=== PATIENT | male | born 1940 | race Caucasian/White ===

== ENCOUNTER → 2020-10-30 | Outpatient (CLI) | payer MEDICARE ==
[~2020-10-30] MED LIST: ASP81CT GT; BETA1TAB15 PO; DILT240C90 PO; FINA5TAB PO; IRB150T; LEVO175T2 PO; LEVO200T30; LVT.15T PO; METO50TA7 PO; OMEP20TA2 PO; RIVA10TA PO; RIVA20TA2 PO; TRIAMCINOLONE CREAM
--- NOTE | 2020-10-30 17:09 | Diagnostic Imaging Report ---
PROCEDURE: MR imaging cervical spine without contrast. TECHNIQUE: Multiplanar, multisequence MR imaging of the cervical spine was performed without contrast. INDICATION: Bilateral arm pain. Patient has prior history of cervical spine surgery. FINDINGS: Curvature of the cervical spine is normal. There is retrolisthesis of C3 on C4. There appears to be osseous fusion between the C6 and C7 vertebral bodies. Severe multilevel degenerative disc disease is seen. There is disc space narrowing and desiccation at all levels of the cervical spine as well as the upper thoracic spine. Cervical cord does show normal homogeneous signal intensity and normal morphology. Craniocervical junction is unremarkable. C2-C3: Central canal and neuroforamina appear to be patent. C3-C4: Broad-based disc/osteophyte complex indents the ventral thecal sac. There is moderate central canal stenosis. There is also significant bilateral neuroforaminal stenosis. C4-C5: Central canal is patent. There is moderate right and mild left neuroforaminal stenosis. C5-C6: Central canal is patent. There is mild left neuroforaminal narrowing. Right neuroforamen is patent. C6-C7: Central canal is patent. Neuroforamina are patent. C7-T1: Central canal is patent. There is moderate neuroforaminal narrowing bilaterally. Paraspinous tissues are unremarkable. IMPRESSION: Multilevel cervical spondylosis with multilevel central canal and neuroforaminal stenosis, described level by level above. Dictated by: Dictated on workstation # [id number]
== END ==
LOC: RAD 14:00
PROVIDERS: ATTEND Nurse Practitioner Family
DX: M47.812 Spondylosis without myelopathy or radiculopathy, cervical region (principal); M48.02 Spinal stenosis, cervical region; M25.78 Osteophyte, vertebrae
CPT/HCPCS: 72141

== ENCOUNTER 2021-01-10 11:15 | Outpatient (RCR) | payer MEDICARE | END 2021-01-30 14:00 | disposition home or self-care (01) | PROVIDERS: ATTEND Nurse Practitioner Family | DX: M54.12 Radiculopathy, cervical region (principal) ==

== ENCOUNTER 2023-01-29 07:49 | Emergency (ER) | payer MEDICARE ==
[~2023-01-29] VITALS: Ht 190 cm; Wt 122.0 kg
[2023-01-29 08:12] LABS: BASOPHILS % (AUTO) 0 % (0-10); EOSINOPHILS % (AUTO) 0 % (0-10); HEMATOCRIT 45 % (40-54); HEMOGLOBIN 14.5 g/dL (13.3-17.7); LYMPHOCYTES # (AUTO) 1.4 10^3/uL (1.0-4.0); LYMPHOCYTES % (AUTO) 13 % (12-44); MEAN CORPUSCULAR HEMOGLOBIN 28 pg (25-34); MEAN CORPUSCULAR HGB CONC 32 g/dL (32-36); MEAN CORPUSCULAR VOLUME 87 fL (80-99); MONOCYTES # (AUTO) 0.5 10^3/uL (0.0-1.0); MONOCYTES % (AUTO) 5 % (0-12); NEUTROPHILS # (AUTO) 8.6 10^3/uL (1.8-7.8); NEUTROPHILS % (AUTO) 81 % (42-75); PLATELET COUNT 165 10^3/uL (130-400); WHITE BLOOD COUNT 10.5 10^3/uL (4.3-11.0)
[2023-01-29 08:17] LABS: ALBUMIN 4.4 GM/DL (3.2-4.5); POTASSIUM 4.1 MMOL/L (3.6-5.0)
[2023-01-29 08:18] LABS: CALCIUM 9.1 MG/DL (8.5-10.1)
[2023-01-29 08:21] LABS: BILIRUBIN,TOTAL 0.7 MG/DL (0.1-1.0)
[2023-01-29 08:23] LABS: CREATININE SERUM 1.28 MG/DL (0.60-1.30)
[2023-01-29 08:31] LABS: CLARITY,URINE CLEAR; COLOR,URINE YELLOW; GLUCOSE, URINE (UA) NEGATIVE (NEGATIVE); KETONES,URINE TRACE (NEGATIVE); NITRITE,URINE NEGATIVE (NEGATIVE); PROTEIN,URINE 3+ (NEGATIVE)
[2023-01-29 08:32] LABS: AMORPHOUS SEDIMENT,UR FEW AMOR URATES /LPF; BACTERIA,URINE NEGATIVE /HPF; BILIRUBIN,URINE 1+ (NEGATIVE); LEUKOCYTE ESTERASE ,URINE NEGATIVE (NEGATIVE); RBC,URINE 0-2 /HPF; WBC,URINE 0-2 /HPF
--- NOTE | 2023-01-29 08:40 | ED Abdominal Pain ---
General Chief Complaint: Abdominal/GI Problems Stated Complaint: ABD PAIN | RIB CAGE PAIN Nursing Triage Note: PT STATES PAIN UNDER HIS UPPER MID RIBCAGE, HX OF GALLBLADDER ISSUES, NAUSEA, SHAKEY, 1 TRAMADOL AT 00:00 AND 1 AT 0600 Source of Information: Patient, Old Records Exam Limitations: No Limitations History of Present Illness Date Seen by Provider: Jan 29, 2023 Time Seen by Provider: 07:53 Initial Comments This 83-year-old gentleman presents to the emergency room with complaints of right upper quadrant abdominal pain that started about midnight. He ate a large Thanksgiving meal last night. He has associated nausea without vomiting. He denies constipation or diarrhea. He has not been passing gas or had any bowel movements today. Pain is constant. He took Ultram at midnight and again at 0600 without much improvement. He was treated here several years ago for abdominal pain and was thought to have cholecystitis at that time although imaging studies were negative. Follow-up hepatobiliary scan was recommended, but he did not pursue HIDA scan at that time. He denies any urinary changes. He rates his pain as 4/10. Chart from his prior visits was reviewed including imaging studies. He is afebrile. He is anticoagulated on Eliquis for stroke prophylaxis and atrial fibrillation. He admits to having 1 small drink of hard liquor daily. Allergies and Home Medications Allergies Coded Allergies: Penicillins (Verified Allergy, Mild, HIVES, 02/16/07) procaine (Verified Allergy, Mild, PASS OUT, 02/16/07) Uncoded Allergies: flu vaccine (Allergy, Unknown, 01/15/14) Patient Home Medication List Home Medication List Reviewed: Yes Cefdinir (Cefdinir) 300 Mg Capsule, 300 MG PO BID Prescribed by: ADRIANA RODRÍGUEZ on 01/29/23 1205 Diltiazem HCl (Diltiazem 24Hr Cd) 240 Mg Cap.er.24h, 240 MG PO HS, (Reported) Entered as Reported by: CINDY CAMPBELL on 06/23/15 0355 Finasteride (Finasteride) 5 Mg Tablet, 5 MG PO HS, (Reported) Entered as Reported by: VISHAL MAYO on 12/07/12 0826 Levothyroxine Sodium (Synthroid) 175 Mcg Tablet, 175 MCG PO DAILY, (Reported) Entered as Reported by: CINDY CAMPBELL on 06/23/15354 Metronidazole (Metronidazole) 500 Mg Tablet, 500 MG PO QID Prescribed by: ADRIANA RODRÍGUEZ on 01/29/23 120 Ondansetron (Ondansetron Odt) 4 Mg Tab.rapdis, 4 MG SL Q4H PRN for NAUSEA/VOMITING Prescribed by: ADRIANA RODRÍGUEZ on 01/29/23 1205 Oxycodone HCl/Acetaminophen (Percocet 5-325 mg Tablet) 1 Each Tablet, 1-2 TAB PO Q4H PRN for PAIN-BREAKTHROUGH Prescribed by: ADRIANA RODRÍGUEZ on 01/29/23 1206 Rivaroxaban (Xarelto Tablet) 20 Mg Tablet, 20 MG PO HS, (Reported) Entered as Reported by: CINDY CAMPBELL on 06/23/15354 Vit A/Vit C/Vit E/Zinc/Copper (Preservision Areds Tablet) 1 Each Tablet, 2 TAB PO HS, (Reported) Entered as Reported by: CINDY CAMPBELL on 06/23/15354 Review of Systems Review of Systems Constitutional: no symptoms reported EENTM: No Symptoms Reported Respiratory: No Symptoms Reported Cardiovascular: No Symptoms Reported Gastrointestinal: See HPI Genitourinary: No Symptoms Reported Musculoskeletal: no symptoms reported Skin: no symptoms reported Psychiatric/Neurological: No Symptoms Reported Endocrine: No Symptoms Reported Hematologic/Lymphatic: No Symptoms Reported Past Mjjnoiw-Dqymda-Diyole Hx Patient Social History Tobacco Use?: No Substance use?: No Alcohol Use?: Yes Past Medical History Surgery/Hospitalization HX: TUMOR IN [facility], A FIB Surgeries: Yes Bladder Surgery (Malignant tumor resected), Orthopedic Respiratory: No Cardiac: Yes Atrial Fibrillation, Hypertension Neurological: No Reproductive Disorders: No Sexually Transmitted Disease: No Genitourinary: Yes Prostate Problems Gastrointestinal: Yes Diverticulosis, Gall Bladder Disease Musculoskeletal: Yes Chronic Back Pain Hypothyroidsim HEENT: No Cancer: Yes Bladder Did You Recieve Any Treatments: Yes What Type of Treatment Did You: Surgical Intervention Psychosocial: No Integumentary: No Family Medical History Arthritis 19 FATHER 19 MOTHER FH: coronary artery bypass surgery 19 FATHER FH: kidney cancer 19 MOTHER FH: leukemia G8 SISTER Kidney disease 19 MOTHER Thyroid disease 19 MOTHER No Pertinent Family Hx Physical Exam Vital Signs Vital Signs - First Documented 01/29/23 01/29/23 07:54 13:00 Temp 36.4 Pulse 111 Resp 20 B/P (MAP) 172/107 (128) Pulse Ox 99 O2 Delivery Room Air Capillary Refill : Less Than 3 Seconds Height/Weight/BMI Height: 6'3.00" Weight: 269lbs. 8.0oz. 122.743944ea; 33.00 BMI Method:Stated General Appearance: WD/WN, no apparent distress HEENT: normal ENT inspection Neck: normal inspection Respiratory: lungs clear, normal breath sounds, no respiratory distress, no accessory muscle use Cardiovascular: no edema, no murmur, irregularly irregular Gastrointestinal: normal bowel sounds, soft, tenderness (Epigastrium and right upper quadrant), other (Appears bloated but not tightly distended) Extremities: normal inspection Neurologic/Psychiatric: no motor/sensory deficits, alert, normal mood/affect, oriented x 3 Skin: normal color, warm/dry Progress/Results/Core Measures Results/Orders Lab Results Laboratory Tests Test 01/29/23 07:51 01/29/23 08:10 Range/Units White Blood Count 10.5 4.3-11.0 10^3/uL Red Blood Count 5.19 4.30-5.52 10^6/uL Hemoglobin 14.5 13.3-17.7 g/dL Hematocrit 45 40-54 % Mean Corpuscular Volume 87 80-99 fL Mean Corpuscular Hemoglobin 28 25-34 pg Mean Corpuscular Hemoglobin Concent 32 32-36 g/dL Red Cell Distribution Width 13.6 10.0-14.5 % Platelet Count 165 130-400 10^3/uL Mean Platelet Volume 9.0 9.0-12.2 fL Immature Granulocyte % (Auto) 1 % Neutrophils (%) (Auto) 81 H 42-75 % Lymphocytes (%) (Auto) 13 12-44 % Monocytes (%) (Auto) 5 0-12 % Eosinophils (%) (Auto) 0 0-10 % Basophils (%) (Auto) 0 0-10 % Neutrophils # (Auto) 8.6 H 1.8-7.8 10^3/uL Lymphocytes # (Auto) 1.4 1.0-4.0 10^3/uL Monocytes # (Auto) 0.5 0.0-1.0 10^3/uL Eosinophils # (Auto) 0.0 0.0-0.3 10^3/uL Basophils # (Auto) 0.0 0.0-0.1 10^3/uL Immature Granulocyte # (Auto) 0.1 0.0-0.1 10^3/uL Sodium Level 137 135-145 MMOL/L Potassium Level 4.1 3.6-5.0 MMOL/L Chloride Level 104 98-107 MMOL/L Carbon Dioxide Level 25 21-32 MMOL/L Anion Gap 8 5-14 MMOL/L Blood Urea Nitrogen 21 H 7-18 MG/DL Creatinine 1.28 0.60-1.30 MG/DL Estimat Glomerular Filtration Rate 55 BUN/Creatinine Ratio 16 Glucose Level 145 H 70-105 MG/DL Calcium Level 9.1 8.5-10.1 MG/DL Corrected Calcium 8.8 8.5-10.1 MG/DL Total Bilirubin 0.7 0.1-1.0 MG/DL Aspartate Amino Transf (AST/SGOT) 19 5-34 U/L Alanine Aminotransferase (ALT/SGPT) 17 0-55 U/L Alkaline Phosphatase 93 40-136 U/L C-Reactive Protein High Sensitivity 0.40 0.00-0.50 MG/DL Total Protein 8.0 6.4-8.2 GM/DL Albumin 4.4 3.2-4.5 GM/DL Lipase 28 8-78 U/L Urine Color YELLOW Urine Clarity CLEAR Urine pH 7.0 5-9 Urine Specific Friendly 1.025 H 1.016-1.022 Urine Protein 3+ H NEGATIVE Urine Glucose (UA) NEGATIVE NEGATIVE Urine Ketones TRACE H NEGATIVE Urine Nitrite NEGATIVE NEGATIVE Urine Bilirubin 1+ H NEGATIVE Urine Urobilinogen 2.0 < = 1.0 MG/DL Urine Leukocyte Esterase NEGATIVE NEGATIVE Urine RBC (Auto) TRACE H NEGATIVE Urine RBC 0-2 /HPF Urine WBC 0-2 /HPF Urine Squamous Epithelial Cells 2-5 /HPF Urine Crystals PRESENT H /LPF Urine Amorphous Sediment FEW NOLVIA URATES H /LPF Urine Bacteria NEGATIVE /HPF Urine Casts NONE /LPF Urine Mucus SMALL H /LPF Urine Culture Indicated NO My Orders Orders - ADRIANA NARANJO MD Cbc And Automated Diff (01/29/23 08:05) Comprehensive Metabolic Panel (01/29/23 08:05) Hs C Reactive Protein (01/29/23 08:05) Lipase (01/29/23 08:05) Ua Culture If Indicated (01/29/23 08:05) Ed Iv/Invasive Line Start (01/29/23 08:05) Ct Abdomen/Pelvis W (01/29/23 08:57) Ns Iv 500 Ml (Ns Iv 500 Ml) (01/29/23 09:00) Iohexol Injection (Omnipaque 350 Mg/Ml 1 (01/29/23 09:15) Received Contrast (Hold Metformin- Contr (01/29/23 09:15) Ns (Ivpb) 100 Ml (Sodium Chloride 0.9% 1 (01/29/23 09:15) Ceftriaxone Iv/Im (Ceftriaxone Iv/Im) (01/29/23 11:24) Ceftriaxone Iv/Im (Ceftriaxone Iv/Im) (01/29/23 11:24) Metronidazole 500mg/100ml Ivpb (Metronid (01/29/23 11:30) Metronidazole 500mg/100ml Ivpb (Metronid (01/29/23 11:30) Rx-Oxycodone/Apap 5-325 Mg (Rx-Percocet (01/29/23 11:30) Rx-Ondansetron Po (Rx-Zofran Po) (01/29/23 11:28) Medications Given in ED Vital Signs/I&O 01/29/23 01/29/23 07:54 13:00 Temp 36.4 Pulse 111 89 Resp 20 20 B/P (MAP) 172/107 (128) 143/100 Pulse Ox 99 O2 Delivery Room Air Room Air 01/29/23 23:59 Intake Total 300 ml Balance 300 ml Blood Pressure Mean: 128 Progress Progress Note : Progress Note Patient was interviewed and examined. He declined medications for symptom management. Labs were obtained, reviewed, and interpreted by me. CBC was unremarkable. Chemistry was notable for slight elevation in BUN of 21 and slight elevation in creatinine of 1.28. GFR was 55. Glucose was mildly elevated at 145. Urinalysis was notable for 3+ protein and crystals present. There is no significant hematuria or evidence of infection. CRP and lipase were normal. CT of the abdomen and pelvis was viewed by me. Inflammatory changes surrounding the gallbladder were noted by my interpretation. I appreciated no other acute abnormalities. Radiologist's report indicated similar findings and gallbladder wall thickening. Acute cholecystitis was considered given these findings. Follow-up ultrasound was recommended. Ultrasound is not available at this facility for the next 4 days. I discussed the case with Dr. Fishman, general surgeon. He recommends holding Eliquis in preparation for surgery and obtaining an ultrasound on Thursday. He will then see the patient immediately in his clinic after the ultrasound. Antibiotic therapy was recommended. Antibiotic treatment was initiated with Rocephin 2 g IV and metronidazole 1 g IV. No pharmacies are open today to fill a prescription, so a large loading doses were given in the ER. Patient received a 500 mL normal saline bolus to help with renal prophylaxis after receiving contrast. Prescriptions were provided and detailed instructions were given to the patient. See discharge instructions for further discussion. Diagnostic Imaging Diagonstic Imaging: CT Plain Films/CT/US/NM/MRI: abdomen, pelvis Comments NAME: JHOANA GOMEZ [facility] REC#: [id number] PT STATUS: REG ER : 1940 PHYSICIAN: ADRIANA NARANJO MD ADMIT DATE: 01/29/23/ER Signed Date of Exam:01/29/23 CT ABDOMEN/PELVIS W CLINICAL INDICATION: Patient with right upper quadrant pain, onset today. The patient has history of bladder tumor removed in 2006 with history of bladder cancer. EXAM: Axial CT scan of the abdomen and pelvis performed with 100 mL of Omnipaque 350 IV contrast. Sagittal and coronal reformatted images were created. Auto Exposure Controls were utilized during the CT exam to meet ALARA standards for radiation dose reduction. COMPARISON: CT scan of abdomen and pelvis with contrast dated 06/22/2015. FINDINGS: There is minimal bibasilar atelectasis posteriorly. There is chronic bilateral L5 spondylolysis with no significant listhesis. There is grade 1 anterolisthesis of L4 on L5 with no pars defect. There are multilevel lower thoracic and lumbar spine degenerative spurs. There is diffuse low-density seen throughout the liver related to diffuse fatty infiltration. There is fatty sparing along the gallbladder fossa region of the liver. The liver is otherwise unremarkable. The spleen and adrenal glands are unremarkable. Again seen are atrophic changes with fatty infiltration of the pancreas again noted. The pancreas is otherwise unremarkable. There is fat stranding adjacent to the gallbladder and there is gallbladder wall thickening. The gallbladder is mild to moderately filled. There are no stones seen on this exam. There are no dilated ducts. Right renal cyst is again seen which has increased in size and now measures 6.6 cm. There is also increased size of a small cyst involving the inferior aspect of the right kidney. Both kidneys have a simple cyst appearance. There is no solid renal mass. There is no hydronephrosis, or stone. There is a small amount of fluid within the bladder. There is stable persistent wall thickening involving the dome of the bladder. There is no measurable mass. Prostate gland is enlarged measuring 5.3 cm in transverse dimension. There is diverticulosis involving the sigmoid colon, descending colon and transverse colon. There is no CT evidence of diverticulitis. The appendix is unremarkable. There is no intestinal obstruction. There is no intra-abdominal free air or free fluid. There is no significant lymphadenopathy. Bilateral fat-containing inguinal hernias are again seen. The extraabdominal and extrapelvic soft tissue structures are unremarkable. IMPRESSION: 1: There is interval development of mild fat stranding adjacent to the gallbladder and gallbladder wall thickening. The gallbladder is mildly to moderately filled. There is no stone seen on this exam and no dilated ducts. Acute cholecystitis may be considered. Right upper quadrant ultrasound is suggested for further evaluation. 2: The remainder of this exam shows no evidence of acute abdominal or pelvic process. 3: There is diverticulosis with no CT evidence of diverticulitis. Dictated by: Dictated on workstation # [id number] Dict: 01/29/2330 Trans: 01/29/23 1104 [facility] [id number] Interpreted by: KARL CORDERO MD Electronically signed by: KARL CORDERO MD 01/29/23 1104 Departure Impression Primary Impression: Acute cholecystitis Additional Impression: Anticoagulated Disposition: 01 HOME, SELF-CARE Condition: Stable Departure-Patient Inst. Decision time for Depature: 11:48 Referrals: NIDA GOODMAN MD (PCP/Family) Primary Care Physician SAMMIE FISHMAN DO Patient Instructions: Cholecystectomy, Laparoscopic Surgery, Gallbladder Diet Add. Discharge Instructions: Adhere to a clear liquid diet for the next 24 hours. Be sure to drink plenty of clear liquids to stay well-hydrated. Thursday, Thursday, and Thursday you may eat a very light diet with no fats, oils, greases, or dairy. A gallbladder diet information packet is attached to these discharge instructions. Do not eat or drink anything after midnight Thursday. You must have an empty stomach for a minimum of 6 hours before the ultrasound. Do not drink alcohol until cleared by Dr. Fishman. You may continue your medications as previously instructed. However, you should stop Eliquis after your evening dose. Do not take any Eliquis from January 30 until you are otherwise instructed by Dr. Fishman. Eliquis needs to be stopped 3 days before surgery. Present to [facility] on ThursdayFebruary 02 at 7:30 AM with your order form for a gallbladder ultrasound. Do not eat or drink after the ultrasound. Go directly from ultrasound to Dr. Fishman's office at the address noted below. Bring your medications and other necessary personal belongings with you as you may be admitted for gallbladder surgery after your clinic visit with Dr. Fishman. You may take your Ultram (tramadol) as previously prescribed for pain. Add Percocet (oxycodone/acetaminophen) as prescribed for pain not well-controlled by Ultram. It is okay to take Ultram and Percocet in combination as long as you do not experience excessive drowsiness or confusion. You may wish to use a stool softener such as Colace while on these medications to prevent constipation. Do not drive, operate machinery, or make important decisions while on Ultram or Percocet. Use the Zofran (ondansetron) as prescribed if you develop nausea or vomiting. Return to the emergency room if you have worsening symptoms despite following these instructions or if you develop new symptoms such as uncontrolled vomiting, fever, chills, etc. Also monitor for alcohol with drawl since you are accustomed to having a drink daily. Symptoms of alcohol withdrawal would include agitation, hallucinations, elevated heart rate, high blood pressure, etc. Return to the ER if you experience these symptoms. Complete your antibiotics as prescribed. Feel free to contact Dr. Naranjo on his cell phone ([phone]) with any questions or concerns until you are able to see Dr. Fishman in the clinic on Thursday. If Dr. Naranjo does not answer your call, please leave a text message, and he will call you back as soon as he is able. All discharge instructions reviewed with patient and/or family. Voiced understanding. Scripts Cefdinir (Cefdinir) 300 Mg Capsule 300 MG PO BID, #14 CAP 0 Refills Prov: ADRIANA NARANJO MD 01/29/23 Metronidazole (Metronidazole) 500 Mg Tablet 500 MG PO QID, #28 TAB 0 Refills Prov: ADRIANA NARANJO MD 01/29/23 Ondansetron (Ondansetron Odt) 4 Mg Tab.rapdis 4 MG SL Q4H PRN for NAUSEA/VOMITING, #10 TAB 1 Refill Prov: ADRIANA NARANJO MD 01/29/23 Oxycodone HCl/Acetaminophen (Percocet 5-325 mg Tablet) 1 Each Tablet 1-2 TAB PO Q4H PRN for PAIN-BREAKTHROUGH MDD 6 TABS, #20 TAB Prov: ADRIANA NARANJO MD 01/29/23 Copy Copies To 1: NIDA GOODMAN MD Copies To 2: SAMMIE FISHMAN JOSHUA T MD Jan 29, 2023 08:40
[2023-01-29] MEDS ORDERED: NS IV 500 ML 500 ML IV ONE (09:00)
[2023-01-29] MEDS ORDERED: NS 100 ML (IVPB) BAG IV ONE (09:15)
[2023-01-29] MEDS ORDERED: IOHEXOL 350 MG/ML 100 ML (OMNIPAQUE 350) VIAL IV ONE (09:15)
[2023-01-29] MEDS ORDERED: HOLD METFORMIN - RECEIVED CONTRAST 20 ML VIAL IV SCH (09:15)
--- NOTE | 2023-01-29 10:26 | Diagnostic Imaging Report ---
CLINICAL INDICATION: Patient with right upper quadrant pain, onset today. The patient has history of bladder tumor removed in 2007 with history of bladder cancer. EXAM: Axial CT scan of the abdomen and pelvis performed with 100 mL of Omnipaque 350 IV contrast. Sagittal and coronal reformatted images were created. Auto Exposure Controls were utilized during the CT exam to meet ALARA standards for radiation dose reduction. COMPARISON: CT scan of abdomen and pelvis with contrast dated 06/22/2015. FINDINGS: There is minimal bibasilar atelectasis posteriorly. There is chronic bilateral L5 spondylolysis with no significant listhesis. There is grade 1 anterolisthesis of L4 on L5 with no pars defect. There are multilevel lower thoracic and lumbar spine degenerative spurs. There is diffuse low-density seen throughout the liver related to diffuse fatty infiltration. There is fatty sparing along the gallbladder fossa region of the liver. The liver is otherwise unremarkable. The spleen and adrenal glands are unremarkable. Again seen are atrophic changes with fatty infiltration of the pancreas again noted. The pancreas is otherwise unremarkable. There is fat stranding adjacent to the gallbladder and there is gallbladder wall thickening. The gallbladder is mild to moderately filled. There are no stones seen on this exam. There are no dilated ducts. Right renal cyst is again seen which has increased in size and now measures 6.6 cm. There is also increased size of a small cyst involving the inferior aspect of the right kidney. Both kidneys have a simple cyst appearance. There is no solid renal mass. There is no hydronephrosis, or stone. There is a small amount of fluid within the bladder. There is stable persistent wall thickening involving the dome of the bladder. There is no measurable mass. Prostate gland is enlarged measuring 5.3 cm in transverse dimension. There is diverticulosis involving the sigmoid colon, descending colon and transverse colon. There is no CT evidence of diverticulitis. The appendix is unremarkable. There is no intestinal obstruction. There is no intra-abdominal free air or free fluid. There is no significant lymphadenopathy. Bilateral fat-containing inguinal hernias are again seen. The extraabdominal and extrapelvic soft tissue structures are unremarkable. IMPRESSION: 1: There is interval development of mild fat stranding adjacent to the gallbladder and gallbladder wall thickening. The gallbladder is mildly to moderately filled. There is no stone seen on this exam and no dilated ducts. Acute cholecystitis may be considered. Right upper quadrant ultrasound is suggested for further evaluation. 2: The remainder of this exam shows no evidence of acute abdominal or pelvic process. 3: There is diverticulosis with no CT evidence of diverticulitis. Dictated by: Dictated on workstation # [id number]
[2023-01-29] MEDS ORDERED: cefTRIAXone IV/IM 1,000 MG in NS (IVPB) 50 ML 50 ML IV STA ×4 (11:24)
[2023-01-29] MEDS ORDERED: RX-ONDANSETRON 4 MG ODT (ZOFRAN) PPK #4 PO STA (11:28)
[2023-01-29] MEDS ORDERED: RX-OXYCODONE/APAP 5-325 MG #4 TAB PK PO PRN (11:30)
[2023-01-29] MEDS ORDERED: metroNIDAZOLE 500MG/100ML IVPB 100 ML IV ONE ×2 (11:30)
[2023-01-29] MEDS ORDERED: OXYC1TAB87 PO (12:05)
[2023-01-29] MEDS ORDERED: ONDA4TAB11 SL (12:05)
[2023-01-29] MEDS ORDERED: CEFD300C3 PO (12:05)
[2023-01-29] MEDS ORDERED: METR-145 PO (12:05)
[2023-01-29 13:00] VITALS: BP 143/100
[2023-02-02] MEDS ORDERED: APIX5TAB PO (12:53)
[2023-02-02] MEDS ORDERED: OMEP20CA18 PO (12:53)
[2023-02-02] MEDS ORDERED: TMSL.4C PO (12:53)
[2023-02-02] MEDS ORDERED: SENN-40 PO (12:53)
[2023-02-02] MEDS ORDERED: DOCU50LI11 PO (12:53)
[2023-02-02] MEDS ORDERED: TR1C15 TP (12:53)
== END 2023-01-29 13:00 | disposition home or self-care (01) ==
LOC: EDUNIT# 07:49 → ER 07:50
DX: K81.0 Acute cholecystitis (principal); I48.91 Unspecified atrial fibrillation; Z79.01 Long term (current) use of anticoagulants
CPT/HCPCS: 36415; 74177; 80053; 81000; 83690; 85025; 86141

== ENCOUNTER → 2023-02-02 | Outpatient (CLI) | payer MEDICARE ==
[~2023-02-02] MED LIST changes: +APIX5TAB PO; +CEFD300C3 PO; +DOCU50LI11 PO; +METR-145 PO; +OMEP20CA18 PO; +ONDA4TAB11 SL; +OXYC1TAB87 PO; +SENN-40 PO; +TMSL.4C PO; +TR1C15 TP
--- NOTE | 2023-02-02 08:51 | Diagnostic Imaging Report ---
PROCEDURE: US Gallbladder. TECHNIQUE: Multiple real-time grayscale images were obtained over the right upper quadrant in various projections. INDICATION: Right upper quadrant pain FINDINGS: The liver measures 15.2 cm. There is hepatopetal flow in the main portal vein. There are no focal liver lesions. The common bile that measures 6 mm. There is cholelithiasis. There is gallbladder wall thickening up to 6 mm. There is no pericholecystic fluid. The visualized portions of the pancreas are unremarkable. The aorta is not well-visualized however there is no definitive sonographic evidence of abdominal aortic aneurysm. The IVC is patent. There are 2 cysts in the right kidney. There is a small amount of free fluid in Desir's pouch. IMPRESSION: 1. Cholelithiasis and gallbladder wall thickening with some fluid in Desir's pouch. The possibility of acute cholecystitis certainly cannot be excluded. Recommend clinical correlation. 2. Moderately large right renal cyst measuring up to 5 and 3.6 cm, respectively. 3. Mildly prominent common bile duct up to 6 mm. Dictated by: Dictated on workstation # [id number]
== END ==
LOC: RAD 07:13
PROVIDERS: ATTEND Family Medicine
DX: K80.00 Calculus of gallbladder with acute cholecystitis without obstruction (principal); N28.1 Cyst of kidney, acquired
CPT/HCPCS: 76705

== ENCOUNTER → 2023-02-02 | Outpatient (CLI) | payer MEDICARE ==
[~2023-02-02] VITALS: Ht 190.5 cm; Wt 121.7 kg
== END | disposition home or self-care (01) ==
LOC: PREOP 11:40
PROVIDERS: ATTEND Surgery
DX: Z01.818 Encounter for other preprocedural examination (principal)

== ENCOUNTER 2023-02-03 10:30 | Day surgery (SDC) | payer MEDICARE ==
[~2023-02-03] VITALS: Ht 190.5 cm; Wt 121.7 kg
[2023-02-03] VITALS (12 sets, daily range): BP systolic 111–160; BP diastolic 66–88
[2023-02-03] MEDS ORDERED: NS IV 500 ML 500 ML IV PRN (10:45)
[2023-02-03] MEDS ORDERED: CLINDAMYCIN 600 MG/50 ML IVPB 50 ML IV ONE (10:45)
[2023-02-03] MEDS ORDERED: LACTATED RINGERS 1,000 ML 1,000 ML IV ONE (11:15)
--- NOTE | 2023-02-03 11:28 | Progress Note-Pre Operative ---
Pre-Operative Progress Note Date H&P Reviewed: Feb 03, 2023 Time H&P Reviewed: 11:28 History & Physical: H&P Reviewed, Patient Examed, No changes noted Pre-Operative Diagnosis: Cholelithiasis, Cholecystitis SAMMIE FISHMAN DO Feb 03, 2023 11:28
[2023-02-03] MEDS ORDERED: LIDOCAINE 2% w/EPI 1:100,000 20 ML VIAL ONE (11:44)
[2023-02-03] MEDS ORDERED: ROCURONIUM 50 MG/5 ML VIAL IV ONE ×2 (11:59→13:26)
[2023-02-03] MEDS ORDERED: fentaNYL INJECTION 100 MCG/2 ML VIAL ONE ×2 (11:59→14:10)
[2023-02-03] MEDS ORDERED: LIDOCAINE PF 2% 5 ML VIAL ONE (11:59)
[2023-02-03] MEDS: LACTATED RINGERS 1,000 ML 1,000 ML IV PRN ×2 (12:39→14:45)
[2023-02-03] MEDS ORDERED: dexAMETHasone INJ 10 MG/ML 1 ML VIAL ONE (13:26)
[2023-02-03] MEDS ORDERED: NEOSTIGMINE 1 MG/1ML 10 ML VIAL ONE (13:26)
[2023-02-03] MEDS ORDERED: GLYCOPYRROLATE INJ 0.2 MG/ML 2 ML VIAL ONE ×2 (13:26→13:46)
[2023-02-03] MEDS ORDERED: ONDANSETRON INJECTION 4 MG/2 ML (SDV) ONE ×2 (13:26→14:09)
[2023-02-03] MEDS ORDERED: SEVOFLURANE (ULTANE) 15 ML INHAL SOLN ONE (13:28)
[2023-02-03] MEDS ORDERED: proPOfol INJECTION 200 MG/20 ML VIAL IV ONE (13:51)
--- NOTE | 2023-02-03 14:06 | Anesthesia-General Post-Op ---
General Patient Condition Mental Status/LOC: Same as Preop Cardiovascular: Satisfactory Nausea/Vomiting: Absent Respiratory: Satisfactory Pain: Controlled Complications: Absent Post Op Complications Complications None Follow Up Care/Instructions Patient Instructions None needed. Anesthesia/Patient Condition Patient Condition Patient is doing well, no complaints, stable vital signs, no apparent adverse anesthesia problems. No complications reported per nursing. OSVALDO DA SILAV CRNA Feb 03, 2023 14:06
[2023-02-03] MEDS ORDERED: OXYC1TAB87 PO (14:11)
[2023-02-03] MEDS ORDERED: fentaNYL INJECTION 100 MCG/2 ML VIAL IVP ONE (14:15)
[2023-02-03] MEDS ORDERED: ONDANSETRON INJECTION 4 MG/2 ML (SDV) IVP PRN (14:15)
--- NOTE | 2023-02-03 14:15 | Discharge Inst-Simple/Standard ---
Discharge Inst-Standard Discharge Medications New, Converted or Re-Newed RX: Transmitted to Pharmacy Patient Instructions/Follow Up Plan of Care/Instructions/FU: 2 weeks Neftali. Restart Eliquis in 3 days. When drain is less than 30 mL in [address] Lindsay office to have drain removed. Activity as Tolerated: No Discharge Diet: Regular Diet Other Inst to Patient Follow up Appt: 2 weeks Neftali. Restart Eliquis in 3 days. When drain is less than 30 mL in [address] Lindsay office to have drain removed. Instructions: No lifting greater than 10 pounds. No strenuous activity. May shower in 24 hours, no tub bath or soaking. Use incentive spirometer at home as directed. No Smoking Skin/Wound Care: You have special glue over incision, it will fall off on it's own. Symptoms to Report: Appetite Changes, Extremity Discoloration, Numbness/Tingling, Swelling Increased, Bleeding Excessive, Eyesight Changes, Pain Increased, Urine Color Change, Constipation(Persistent), Fever over 101 degree F, Pain/Pressure in chest, Urinating Difficulty, Cough Up/Vomit Blood, Heart Beat Irreg/Pounding, Pain/Pressure in jaw, Vaginal Bleeding Increase, Cramps in feet or legs, Li ghtheadedness, Pain/Pressure in shoulder, Diarrhea(Persistent), Memory Changes Suddenly, Questions/Concerns, Weight gain consecutive days, Dizziness/Fainting, Nausea/Vomiting, Shortness of Breath, Weight gain over 2 pounds. If eyes or skin turn yellow notify physician. If questions or concerns contact your physician Or seek help at emergency department. SAMMIE LINDSAY DO Feb 03, 2023 14:15
--- NOTE | 2023-02-03 14:17 | Progress Note-Post Operative ---
Post-Operative Progess Note Surgeon (s)/Algologist (s) Surgeon SAMMIE FISHMAN DO Algologist: Dr. Dorsey Pre-Operative Diagnosis Cholelithiasis, Cholecystitis Post-Operative Diagnosis same Procedure & Operative Findings Date of Procedure 02/03/23 Procedure Performed/Findings PROCEDURE: Laparoscopic cholecystectomy with intraoperative cholangiogram. COMPLICATIONS: None. PROCEDURE: The patient was taken to the operating suite and was prepped and draped in sterile fashion. A surgical pause was performed. Just superior to the umbilicus, a 12 mm incision was made. Dissection was taken down to the fascia, which was then scored and grasped with a Demetrius and the abdomen was then entered. A 0 Vicryl suture was placed in a [id number] fashion and a Daly trocar was placed and secured. Pneumoperitoneum was achieved. A 5mm trochar place in the subxyphoid and 2 in the right upper quadrant. The gallbladder was then grasped and elevated by Dr. Dorsey. Had to be decompre ssed. Lots of adhesions and phlegmon around the gallbladder. The cystic duct, and cystic artery were then dissected out. Clip was placed on the distal portion of the cystic duct which was then partially transected. An arrow catheter was inserted into the duct. The cholangiogram was then performed. No filing defects and contrast made its way into the duodenum. Catheter removed. Clips were placed on proximal portion of the cystic duct and then the duct was then transected. Clips were placed along the proximal and distal portion of the cystic artery which was then transected. Hook cautery was used to dissect the gallbladder from the gallbladder fossa achieving hemostasis. The gallbladder was placed in an Endobag along with a large amount of stones that had fallen out of the gallbladder, and removed through the 12 mm trocar site. The abdomen was then reinspected. Copious amounts of irrigation were used to irrigate the abdomen and there were no signs of active bleeding. Hemostasis had been achieved. 19 Tyrell drain was placed in the gallbladder fossa and brought out lateral 5mm trocar. Secured with 3-0 nylon stitch. The 12 mm fascial defect was then closed with 0 Vicryl suture that had been placed in a [id number] fashion. The abdomen was then desufflated, the trocars were removed. The abdomen was then washed and dried. The skin was then closed using 4-0 Monocryl in a subcuticular fashion. The abdomen was washed and dried and Skin Affix was place over incisions. Patient tolerated the procedure well without any complications and was taken to the recovery room in stable condition. Anesthesia Type general Estimated Blood Loss Estimated blood loss (mL): minimal Specimens/Packing Specimens Removed gallbladder SAMMIE FISHMAN DO Feb 03, 2023 14:17
--- NOTE | 2023-02-03 16:39 | Diagnostic Imaging Report ---
INDICATION: Right upper quadrant abdominal pain. IMPRESSION: 1.3 seconds of fluoroscopy was used. A single digital image of cholangiogram was performed. Cholangiogram image shows contrast in the common duct but none passing into the duodenum. Dictated by: Dictated on workstation # [id number]
== END 2023-02-03 16:10 | disposition home or self-care (01) ==
LOC: SDC 10:30
PROVIDERS: ATTEND Surgery
DX: K80.12 Calculus of gallbladder with acute and chronic cholecystitis without obstruction (principal); E66.01 Morbid (severe) obesity due to excess calories; Z68.33 Body mass index [BMI] 33.0-33.9, adult; Z85.9 Personal history of malignant neoplasm, unspecified; Z87.891 Personal history of nicotine dependence; Z79.01 Long term (current) use of anticoagulants
CPT/HCPCS: 76000; 87081